=== PATIENT | male | born 1980 | race Caucasian/White ===

== ENCOUNTER 2019-05-25 19:02 | Emergency (ER) | payer OTHER ==
--- NOTE | 2019-05-25 19:41 | ED ---
General Adult HPI - General Chief complaint: Abdominal Pain Stated complaint: hematuria Time Seen by Provider: 05/25/19 19:29 Source: patient, RN notes reviewed Mode of arrival: ambulatory Limitations: no limitations - History of Present Illness Initial comments: 38-year-old male with a past medical history of TBI presents to the emergency department for gross hematuria times one day. Patient states this started yesterday. Despite triage note, patient is asymptomatic with this. Denies any abdominal or flank pain. States he always has "gas pressure" at all times and this is not new. Denies any fevers or chills. Denies dysuria. Denies any testicular pain.Patient has no other complaints at this time including shortness of breath, chest pain, abdominal pain, nausea or vomiting, headache, or visual changes. - Related Data Allergies Allergy/AdvReac Type Severity Reaction Status Date / Time No Known Allergies Allergy Verified 05/25/19 19:23 Review of Systems ROS Statement: Those systems with pertinent positive or pertinent negative responses have been documented in the HPI. ROS Other: All systems not noted in ROS Statement are negative. Past Medical History Additional Past Medical History / Comment(s): TBI History of Any Multi-Drug Resistant Organisms: None Reported Past Surgical History: No Surgical Hx Reported Past Psychological History: No Psychological Hx Reported Smoking Status: Current every day smoker Past Alcohol Use History: Rare Past Drug Use History: Marijuana General Exam Limitations: no limitations General appearance: alert, in no apparent distress Head exam: Present: atraumatic, normocephalic, normal inspection Eye exam: Present: normal appearance, PERRL, EOMI. Absent: scleral icterus, con junctival injection, periorbital swelling ENT exam: Present: normal exam, mucous membranes moist Neck exam: Present: normal inspection, full ROM. Absent: tenderness, meningismus, lymphadenopathy Respiratory exam: Present: normal lung sounds bilaterally. Absent: respiratory distress, wheezes, rales, rhonchi Cardiovascular Exam: Present: regular rate, normal rhythm, normal heart sounds. Absent: systolic murmur, diastolic murmur, rubs, gallop, clicks GI/Abdominal exam: Present: soft, normal bowel sounds. Absent: distended, tenderness (Tenderness noted of the abdomen whatsoever, abdomen is soft, no guarding.), guarding, rebound, rigid Back exam: Absent: CVA tenderness (R), CVA tenderness (L) Course Vital Signs 05/25/19 19:18 Temperature 98.4 F Pulse Rate 70 Respiratory 18 Rate Blood Pressure 134/86 O2 Sat by Pulse 100 Oximetry Medical Decision Making - Medical Decision Making 38-year-old male with a past medical history of TBI presents for hematuria times one day. States this started yesterday. Patient does not have any symptoms. No abdominal pain or back pain. No fevers or chills. No dysuria. No difficulty urinating. He is not passing any clots. Exam is unremarkable. Abdomen is soft. No CVA tenderness. Vitals are stable. No concern for kidney stone at this time given no pain, no CVA tenderness. Urine does show greater than 182 red blood cells with 27 white blood cells. Urine will be cultured and antibiotics will be given if culture is positive. Gonorrhea and chlamydia also added, currently pending. Discussed with patient that he needs to follow up with urology for this and discussed strict return parameters. Discussed returning if he has any worsening symptoms. - Lab Data Lab Results 05/25/19 Range/Units 20:44 Urine Color Dark Brown Urine Appearance Cloudy (Clear) Urine pH 6.0 (5.0-8.0) Ur Specific [place] 1.031 (1.001-1.035) Urine Protein 2+ H (Negative) Urine Glucose (UA) Negative (Negative) Urine Ketones Trace H (Negative) Urine Blood Large H (Negative) Urine Nitrite Negative (Negative) Urine Bilirubin Negative (Negative) Urine Urobilinogen 2.0 (<2.0) mg/dL Ur Leukocyte Esterase Small H (Negative) Urine RBC >182 H (0-5) /hpf Urine WBC 27 H (0-5) /hpf Urine Mucus Many H (None) /hpf Disposition Clinical Impression: Hematuria Disposition: HOME SELF-CARE Condition: Good Instructions (If sedation given, give patient instructions): Hematuria (ED) Additional Instructions: Please follow up with urology in 1-2 days. Please return to the emergency department if you have any worsening symptoms such as fevers, pain in the abdomen or back, or difficulty urinating or unable to urinate. Is patient prescribed a controlled substance at d/c from ED?: No Referrals: Gerry Waldron MD [REFERRING] - 1-2 days John Garcia MD [STAFF PHYSICIAN] - 1-2 days Time of Disposition: :09
[2019-05-25 20:52] LABS: Appearance,Urine Cloudy (Clear); Bilirubin,Urine Negative (Negative); Blood,Urine Large (Negative); Color,Urine Dark Brown; Glucose,Urine (UA) Negative (Negative); Ketones,Urine Trace (Negative); Leukocyte Esterase,Urine Small (Negative); Mucus,Urine Many /hpf; Nitrite,Urine Negative (Negative); Protein,Urine 2+ (Negative); RBC,Urine >182 /hpf (0-5); Specific Gravity,Urine 1.031 (1.001-1.035); WBC,Urine 27 /hpf (0-5)
[2019-05-25 21:33] VITALS: BP 122/83; PULSE 52; RESP 16; TEMP 98.3
== END 2019-05-25 21:25 | disposition home or self-care (01) ==
LOC: EC 19:02
DX: R31.0 Gross hematuria (principal); F17.200 Nicotine dependence, unspecified, uncomplicated; Z87.820 Personal history of traumatic brain injury
CPT/HCPCS: 81001; 87086; 99284

== ENCOUNTER 2019-05-29 07:08 | Emergency (ER) | payer OTHER ==
[2019-05-29] MEDS ORDERED: ONDANSETRON 4 MG/2 ML VIAL IVP STA (07:35)
[2019-05-29] MEDS ORDERED: SODIUM CHLORIDE 0.9% 500 ML 500 ML IV STA (07:35)
[2019-05-29] MEDS ORDERED: KETOROLAC 30 MG/ML 1 ML VIAL IVP STA (07:35)
[2019-05-29] MEDS ORDERED: SODIUM CHLORIDE 0.9% 1,000 ML IV STA (07:35)
--- NOTE | 2019-05-29 07:39 | ED ---
Abdominal Pain HPI - General Chief Complaint: Abdominal Pain Stated Complaint: hematuria Time Seen by Provider: 05/29/19 07:33 Source: patient, family, RN notes reviewed Mode of arrival: wheelchair Limitations: no limitations - History of Present Illness Initial Comments: 38-year-old male presents emergency Department with chief complaint of right flank pain. Patient seen here a few days ago for hematuria. Patient states that the pain has worsened he did state that the blood seemed to improve but has not worsened also. Does admit to some nausea no vomiting no diarrhea no constipation. Denies any fevers or chills. no history of kidney stones. Patient states that nothing really makes the pain feel better or worse. Patient states that he's had no prior abdominal surgeries. - Related Data Previous Rx's Medication Instructions Recorded Ciprofloxacin HCl [Cipro] 500 mg PO Q12HR #14 tablet 05/29/19 HYDROcodone/APAP 7.5-325MG [[place] 1 tab PO Q6HR PRN 3 Days #12 tab 05/29/19 7.5-325] Ketorolac [Toradol] 10 mg PO Q8HR #15 tab 05/29/19 Ondansetron Odt [Zofran Odt] 4 mg PO Q8HR PRN #10 tab 05/29/19 Tamsulosin [Flomax] 0.4 mg PO DAILY #7 cap 05/29/19 Allergies Allergy/AdvReac Type Severity Reaction Status Date / Time No Known Allergies Allergy Verified 05/29/19 07:27 Review of Systems ROS Statement: Those systems with pertinent positive or pertinent negative responses have been documented in the HPI. ROS Other: All systems not noted in ROS Statement are negative. Past Medical History Additional Past Medical History / Comment(s): TBI History of Any Multi-Drug Resistant Organisms: None Reported Past Surgical History: No Surgical Hx Reported Past Psychological History: No Psychological Hx Reported Smoking Status: Current every day smoker Past Alcohol Use History: Rare Past Drug Use History: Marijuana General Exam Limitations: no limitations General appearance: alert, in no apparent distress Head exam: Present: atraumatic, normocephalic, normal inspection Respiratory exam: Present: normal lung sounds bilaterally. Absent: respiratory distress, wheezes, rales, rhonchi, stridor Cardiovascular Exam: Present: regular rate, normal rhythm, normal heart sounds. Absent: systolic murmur, diastolic murmur, rubs, gallop, clicks GI/Abdominal exam: Present: soft, normal bowel sounds. Absent: distended, tenderness, guarding, rebound, rigid Back exam: Present: CVA tenderness (R) (Mild). Absent: CVA tenderness (L) Skin exam: Present: warm, dry, intact, normal color. Absent: rash Course Vital Signs 05/29/19 07:18 Temperature 98.0 F Pulse Rate 55 L Respiratory 18 Rate Blood Pressure 122/78 O2 Sat by Pulse 97 Oximetry Medical Decision Making - Medical Decision Making 38-year-old male presented for right flank pain, hematuria. Patient had labs and CT. Patient has evidence of a 9 mm x 5 mm stone. This is causing some mild obstruction urinalysis was reveal reveals mild bacteria. Case discussed with on-call urologist recommends antibiotics, Flomax, pain control and will follow- up in office. - Lab Data Result diagrams: 05/29/19 07:36 05/29/19 07:36 Lab Results 05/29/19 05/29/19 05/29/19 Range/Units 07:36 07:36 07:36 WBC 9.7 (3.8-10.6) k/uL RBC 4.76 (4.30-5.90) m/uL Hgb 15.4 (13.0-17.5) gm/dL Hct 46.9 (39.0-53.0) % MCV 98.6 (80.0-100.0) fL MCH 32.3 (25.0-35.0) pg MCHC 32.8 (31.0-37.0) g/dL RDW 12.8 (11.5-15.5) % Plt Count 277 (150-450) k/uL Neutrophils % 79 % Lymphocytes % 13 % Monocytes % 5 % Eosinophils % 1 % Basophils % 0 % Neutrophils # 7.7 (1.3-7.7) k/uL Lymphocytes # 1.3 (1.0-4.8) k/uL Monocytes # 0.5 (0-1.0) k/uL Eosinophils # 0.1 (0-0.7) k/uL Basophils # 0.0 (0-0.2) k/uL Sodium 143 (137-145) mmol/L Potassium 4.2 (3.5-5.1) mmol/L Chloride 108 H (98-107) mmol/L Carbon Dioxide 26 (22-30) mmol/L Anion Gap 9 mmol/L BUN 21 H (9-20) mg/dL Creatinine 0.95 (0.66-1.25) mg/dL Est GFR (CKD-EPI)AfAm >90 (>60 ml/min/1.73 sqM) Est GFR (CKD-EPI)NonAf >90 (>60 ml/min/1.73 sqM) Glucose 111 H (74-99) mg/dL Calcium 9.3 (8.4-10.2) mg/dL Total Bilirubin 0.4 (0.2-1.3) mg/dL AST 19 (17-59) U/L ALT 18 L (21-72) U/L Alkaline Phosphatase 73 (38-126) U/L Total Protein 7.2 (6.3-8.2) g/dL Albumin 4.3 (3.5-5.0) g/dL Lipase 218 (23-300) U/L Urine Color Red Urine Appearance Cloudy (Clear) Urine pH 8.5 H (5.0-8.0) Ur Specific [place] 1.020 (1.001-1.035) Urine Protein 1+ H (Negative) Urine Glucose (UA) Negative (Negative) Urine Ketones Negative (Negative) Urine Blood Large H (Negative) Urine Nitrite Negative (Negative) Urine Bilirubin Negative (Negative) Urine Urobilinogen <2.0 (<2.0) mg/dL Ur Leukocyte Esterase Negative (Negative) Urine RBC >182 H (0-5) /hpf Urine WBC 61 H (0-5) /hpf Urine WBC Clumps Occasional H (None) /hpf Urine Bacteria Occasional H (None) /hpf Urine Mucus Occasional H (None) /hpf Disposition Clinical Impression: Right ureteral calculus, UTI (urinary tract infection), Hematuria Disposition: HOME SELF-CARE Condition: Stable Instructions (If sedation given, give patient instructions): Kidney Stones (ED) Additional Instructions: Please return to the Emergency Department if symptoms worsen or any other concerns. Prescriptions: Ciprofloxacin HCl [Cipro] 500 mg PO Q12HR #14 tablet Tamsulosin [Flomax] 0.4 mg PO DAILY #7 cap HYDROcodone/APAP 7.5-325MG [[place] 7.5-325] 1 tab PO Q6HR PRN 3 Days #12 tab PRN Reason: Pain Ketorolac [Toradol] 10 mg PO Q8HR #15 tab Ondansetron Odt [Zofran Odt] 4 mg PO Q8HR PRN #10 tab PRN Reason: Nausea Is patient prescribed a controlled substance at d/c from ED?: Yes When asked, does pt state using other controlled substances?: Yes If prescribed controlled substance>3 days was MAPS reviewed?: Prescribed <3 Days If opioid is for acute pain is fill amount 7 days or less?: Yes If Rx opioid, was Start Talking consent form obtained?: Yes Referrals: None,Stated [Primary Care Provider] - 1-2 days Daniel Sneed MD [STAFF PHYSICIAN] - 1-2 days Time of Disposition: 10:17
[2019-05-29 07:56] LABS: Basophils % (A) 0 %; Eosinophils # (A) 0.1 k/uL (0-0.7); Eosinophils % (A) 1 %; HCT 46.9 % (39.0-53.0); HGB 15.4 gm/dL (13.0-17.5); Lymphocytes # (A) 1.3 k/uL (1.0-4.8); Lymphocytes % (A) 13 %; MCH 32.3 pg (25.0-35.0); MCHC 32.8 g/dL (31.0-37.0); MCV 98.6 fL (80.0-100.0); Mean Platelet Volume 6.8; Monocytes # (A) 0.5 k/uL (0-1.0); Monocytes % (A) 5 %; Neutrophils # (A) 7.7 k/uL (1.3-7.7); Neutrophils % (A) 79 %; Platelet Count 277 k/uL (150-450); RBC 4.76 m/uL (4.30-5.90); RDW 12.8 % (11.5-15.5); WBC 9.7 k/uL (3.8-10.6)
[2019-05-29 08:02] LABS: Appearance,Urine Cloudy (Clear); Bacteria,Urine Occasional /hpf; Bilirubin,Urine Negative (Negative); Blood,Urine Large (Negative); Color,Urine Red; Glucose,Urine (UA) Negative (Negative); Ketones,Urine Negative (Negative); Leukocyte Esterase,Urine Negative (Negative); Mucus,Urine Occasional /hpf; Nitrite,Urine Negative (Negative); PH, Urine 8.5 (5.0-8.0); Protein,Urine 1+ (Negative); RBC,Urine >182 /hpf (0-5); Urobilinogen,Urine <2.0 mg/dL (<2.0)
[2019-05-29 08:07] LABS: ALT 18 U/L (21-72); AST 19 U/L (17-59); African American GFR (CKD) >90 (>60 ml/min/1.73 sqM); Albumin 4.3 g/dL (3.5-5.0); Alkaline Phosphatase 73 U/L (38-126); Anion Gap 9 mmol/L; Blood Urea Nitrogen 21 mg/dL (9-20); Calcium 9.3 mg/dL (8.4-10.2); Carbon Dioxide 26 mmol/L (22-30); Chloride 108 mmol/L (98-107); Glucose 111 mg/dL (74-99); Potassium 4.2 mmol/L (3.5-5.1); Sodium 143 mmol/L (137-145); Total Bilirubin 0.4 mg/dL (0.2-1.3); Total Protein 7.2 g/dL (6.3-8.2)
--- NOTE | 2019-05-29 09:54 | CT ---
EXAMINATION TYPE: CT abdomen pelvis wo con DATE OF EXAM: 05/29/2019 COMPARISON: None HISTORY: Rt flank pain, gross hematuria CT DLP: 241.2 mGycm Automated exposure control for dose reduction was used. TECHNIQUE: Helical acquisition of images was performed from the lung bases through the pelvis. FINDINGS: Evaluation of the solid organs is limited due to lack of intravenous contrast. LUNG BASES: No significant abnormality is appreciated. LIVER/GB: No significant abnormality is appreciated. PANCREAS: No significant abnormality is seen. SPLEEN: No significant abnormality is seen. ADRENALS: No significant abnormality is seen. KIDNEYS: Mild right-sided hydronephrosis, renal edema, periureteral and perinephric stranding from 0. 9 cm (craniocaudad dimension) calculus seen in the proximal right ureter. FREE AIR: No free air is visualized RETROPERITONEAL ADENOPATHY: None visualized REPRODUCTIVE ORGANS: No significant abnormality is seen URINARY BLADDER: No significant abnormality is seen. PELVIC ADENOPATHY: None visualized. OSSEOUS STRUCTURES: No significant abnormality is seen. BOWEL: No significant abnormality is seen. IMPRESSION: MILD RIGHT-SIDED OBSTRUCTIVE UROPATHY FROM 0.9 CM PROXIMAL RIGHT URETER CALCULUS.
[2019-05-29] MEDS ORDERED: TAMSULOSIN 0.4 MG CAP.ER.24H PO STA (10:11)
[2019-05-29] MEDS ORDERED: cefTRIAXone IN SWFI 1,000 MG/10 ML SYRINGE IVP STA (10:11)
[2019-05-29 10:38] VITALS: BP 109/67; PULSE 67; RESP 16; TEMP 98.2
[2019-05-30 16:14] LABS: N. gonorrhoeae,PCR Negative (Neg,Equiv); Neisseria Source Urine
[2019-05-30 16:15] LABS: C. trachomatis,PCR Negative (Neg,Equiv); Chlamydia trachomatis Source Urine
== END 2019-05-29 10:38 | disposition home or self-care (01) ==
LOC: EC 07:08
DX: N20.1 Calculus of ureter (principal); N39.0 Urinary tract infection, site not specified; F17.200 Nicotine dependence, unspecified, uncomplicated
CPT/HCPCS: 36415; 80053; 83690; 85025; 81001; 87491; 87591; 87086; 74176; 99284; 96374; 96375 ×2; 96361; J2405; J0696; J1885

== ENCOUNTER 2019-06-05 09:36 | Day surgery (SDC) | payer SELFPAY ==
[2019-06-02 09:05] VITALS: BMI 17.9
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
[~2019-06-05 09:36] MED LIST: MIDAZOLAM 2 MG/2 ML VIAL ONE; PROPOFOL 10 MG/ML 20 ML VIAL IV ONE; Pre Op ABX Message 1 EACH MISC MISCELLANE ONE; SUCCINYLCHOLINE CHLORIDE 100 MG/5 ML SYR IV ONE; fentaNYL (PF) 50 MCG/ML 2 ML AMP ONE
--- NOTE | 2019-06-05 10:09 | XR ---
EXAMINATION TYPE: XR KUB DATE OF EXAM: 06/05/2019 COMPARISON: CT abdomen pelvis 05/29/2019 HISTORY: Prelithotripsy TECHNIQUE: Single AP abdomen. FINDINGS: Moderate fecal retention is through the transverse colon. The patient's right ureteral ston e is not well visualized but possibly could overlie the right sacrum. Note is made of attempted sacra lization of L5. IMPRESSION: 1. Right proximal ureteral stone is not clearly identified. Calcification may overlie the right sacr um. 2. Moderate fecal retention
[2019-06-05] MEDS ORDERED: LIDOCAINE 1% 20 ML VIAL (10MG/ML) FOR IV START INTRADERMA ONE (10:14)
[2019-06-05] MEDS ORDERED: LACTATED RINGERS 1,000 ML IV ONE ×2 (10:16→13:01)
--- NOTE | 2019-06-05 12:19 | P.OP ---
Date of Procedure: 06/05/19 Preoperative Diagnosis: Proximal right ureteral calculus Postoperative Diagnosis: Mid right ureteral calculus Procedure(s) Performed: Extracorporeal shockwave lithotripsy of right ureteral calculus Anesthesia: MAC Surgeon: Daniel Sneed Estimated Blood Loss (ml): 0 Pathology: none sent Condition: stable Disposition: PACU Indications for Procedure: The patient is a 38-year-old male who recently developed severe right flank pain secondary to a 6 x 9 mm calculus which was in the L4-L5 region on a computed tomography scan last week. Treatment options were reviewed with Dr. Hood and the patient has elected to proceed with ESWL. Preoperative KUB shows the calculus appears to have migrated to just superior to the inferior margin of the sacroiliac joint. Description of Procedure: The patient was taken the operating suite and placed in supine position on the fluoroscopy table. The right ureteral calculus was localized using biplanar fluoroscopy. Intravenous sedation was given. The patient received approximately 500 shocks at level 6 at a rate of 80 shocks per minute, but had periodic coughing secondary to mucus production and it was elected to convert to general anesthesia via endotracheal intubation. The patient received a total of 3000 shocks. It was unclear if the calculus fragmented. The patient was extubated and taken to the recovery room in satisfactory condition. He will be seen by Dr Hood in 1 week at which time a KUB was obtained.
[2019-06-05 12:37] VITALS: TEMP 97.1
[2019-06-05] MEDS ORDERED: HYDROmorphone 1 MG/ML 1 ML SYRINGE IVP ONE (12:47)
[2019-06-05] MEDS ORDERED: ONDANSETRON 4 MG/2 ML VIAL IVP ONE (12:57)
[2019-06-05 13:32] VITALS: BP 130/80; PULSE 51; RESP 15
== END 2019-06-05 14:01 | disposition home or self-care (01) ==
LOC: ORWHC2ENDO 09:36
PROVIDERS: ATTEND Urology
DX: N20.1 Calculus of ureter (principal); F17.210 Nicotine dependence, cigarettes, uncomplicated; Z79.1 Long term (current) use of non-steroidal anti-inflammatories (NSAID); Z79.891 Long term (current) use of opiate analgesic; Z79.899 Other long term (current) drug therapy; Z79.2 Long term (current) use of antibiotics; Z87.820 Personal history of traumatic brain injury; Z80.9 Family history of malignant neoplasm, unspecified
CPT/HCPCS: 50590; 74018; J2250; J2405; J3010; J1170; J0330; J2704

== ENCOUNTER 2022-05-14 09:00 | Emergency (ER) | payer OTHER ==
[2022-05-14] MEDS ORDERED: FLUORESCEIN STRIPS 1 MG STRIP RIGHT EYE ONE (09:03)
[2022-05-14] MEDS ORDERED: PROPARACAINE 0.5% OPHTH DROPS 15 ML BTL RIGHT EYE STA (09:03)
[2022-05-14] MEDS ORDERED: TOBRAMYCIN 0.3% OPHTH DROPS 5 ML BTL BOTH EYES STA (09:44)
[2022-05-14] MEDS ORDERED: ARTIFICIAL TEARS-HYPROMELLOSE DROPS 15 ML BTL BOTH EYES STA (09:44)
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
[2022-05-14 10:03] VITALS: BP 110/68; PULSE 68; RESP 18; TEMP 98.1
== END 2022-05-14 10:15 | disposition home or self-care (01) ==
LOC: EC 09:00
DX: T15.01XA Foreign body in cornea, right eye, initial encounter (principal); T15.02XA Foreign body in cornea, left eye, initial encounter; H10.33 Unspecified acute conjunctivitis, bilateral; F17.200 Nicotine dependence, unspecified, uncomplicated; F12.90 Cannabis use, unspecified, uncomplicated; W45.8XXA Other foreign body or object entering through skin, initial encounter
CPT/HCPCS: 99283

== ENCOUNTER 2022-06-29 18:59 | Emergency (ER) | payer OTHER ==
--- NOTE | 2022-06-29 20:44 | XR ---
EXAMINATION TYPE: XR foot complete LT DATE OF EXAM: 06/29/2022 COMPARISON: NONE HISTORY: Foot pain TECHNIQUE: 3 views FINDINGS: The metatarsals are intact. I see no fracture nor dislocation. Joint spaces are normal. The re are no erosions. IMPRESSION: Negative left foot exam. No fracture seen.
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
[2022-06-29 21:16] VITALS: BP 132/79; PULSE 79; RESP 20; TEMP 98
== END 2022-06-29 21:20 | disposition home or self-care (01) ==
LOC: EC 18:59
DX: S96.912A Strain of unspecified muscle and tendon at ankle and foot level, left foot, initial encounter (principal); F17.200 Nicotine dependence, unspecified, uncomplicated; W20.8XXA Other cause of strike by thrown, projected or falling object, initial encounter
CPT/HCPCS: 99284

== ENCOUNTER 2023-10-09 19:11 | Emergency (ER) | payer OTHER ==
[2023-10-09 19:35] VITALS: RESP 16
[2023-10-09] MEDS ORDERED: KETOROLAC 15 MG/ML 1 ML VIAL IM STA (20:08)
[2023-10-09] MEDS ORDERED: methocarbamoL 750 MG TAB PO STA (20:08)
[2023-10-09 20:19] VITALS: BP 116/74; PULSE 82
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
[2023-10-09] MEDS ORDERED: ACET/COD 300 MG/30 MG STARTER PACK 6 TAB BTL PO STA (21:14)
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
== END 2023-10-09 21:26 | disposition home or self-care (01) ==
LOC: EC 19:11
DX: S16.1XXA Strain of muscle, fascia and tendon at neck level, initial encounter (principal); F17.200 Nicotine dependence, unspecified, uncomplicated; F12.90 Cannabis use, unspecified, uncomplicated; V89.2XXA Person injured in unspecified motor-vehicle accident, traffic, initial encounter; Y92.411 Interstate highway as the place of occurrence of the external cause
CPT/HCPCS: 72125; 70450; 99285; 96372; J1885